=== PATIENT | female | born 1940 | race Hispanic/Latino ===

== ENCOUNTER 2017-12-16 18:47 | Inpatient (IN) | payer MEDICARE, OTHER ==
[~2017-12-16] VITALS: Ht 160 cm; Wt 60.5 kg
[~2017-12-16 18:47] MED LIST: SEROQUEL25 MG PO; TRAZODONE HCL50 MG GT
--- NOTE | 2017-12-16 20:23 | Diagnostic Imaging Report ---
EXAMINATION: CHEST SINGLE (PORTABLE) 12/16/2017 7:57 PM COMPARISON: None INDICATION: Preoperative evaluation. Patient pulled out G-tube. DISCUSSION: LINES: None. LUNGS: The lung volumes are low. There is a retrocardiac opacity. Subsegmental atelectasis in the right lung base. PLEURA: No pleural effusion or pneumothorax. HEART AND MEDIASTINUM: Heart size is at the upper limits of normal. There is atherosclerosis of the thoracic aorta. BONES AND SOFT TISSUES: No acute osseous lesion. The soft tissues are normal. IMPRESSION: Low lung volumes with right basilar subsegmental atelectasis. Left lower lobe airspace opacity may represent atelectasis or infection. Shon Yee MD Signed by: Dr. Shon Yee M.D. on 12/16/2017 8:19 PM
[2017-12-16 20:57] LABS: BASOPHILS # (AUTO) 0.1 (0.0-0.1); BASOPHILS % 0.7 % (0.0-1.0); EOSINOPHILS % 0.4 % (0.0-6.0); HEMATOCRIT 44.3 % (34.2-44.1); HEMOGLOBIN 14.5 g/dL (12.0-16.0); LYMPHOCYTES # (AUTO) 1.6 (1.0-3.2); LYMPHOCYTES % 19.4 % (18.0-39.1); MEAN CORPUSCULAR HGB CONC 32.7 g/dL (31-35); MEAN CORPUSCULAR VOLUME 97.8 fL (81-99); MONOCYTES # (AUTO) 0.7 (0.2-0.8); MONOCYTES % 8.8 % (4.4-11.3); NEUTROPHILS # (AUTO) 5.9 (2.1-6.9); NEUTROPHILS % 70.5 % (38.7-80.0); PLATELET COUNT 246 x10e3/uL (140-360); RED BLOOD COUNT 4.53 x10e6/uL (3.6-5.1); RED CELL DISTRIBUTION WIDTH 14.4 % (11.7-14.4)
[2017-12-16 21:01] LABS: INR 1.09; PROTHROMBIN TIME 13.3 seconds (11.9-14.5)
[2017-12-16 21:02] LABS: PARTIAL THROMBOPLASTIN TIME 29.2 seconds (23.8-35.5)
[2017-12-16] MEDS ORDERED: LISINOPRIL20 MG GT (21:07)
[2017-12-16] MEDS ORDERED: LEVETIRACE500 MG/51 GT ×2 (21:07)
[2017-12-16] MEDS ORDERED: [UNRECOGNIZED DRUG - CODE] NEB (21:07)
[2017-12-16] MEDS ORDERED: TRANSDERM-SCOP1 EACH TD (21:07)
[2017-12-16] MEDS ORDERED: PHENYTOIN125 MG/5 M GT (21:07)
[2017-12-16] MEDS ORDERED: NEXIUM40 M1 GT (21:07)
[2017-12-16] MEDS ORDERED: MAGNESIUM OXID400 MG GT (21:07)
[2017-12-16] MEDS ORDERED: FERROUS SULFATE GT (21:07)
[2017-12-16] MEDS ORDERED: TYLENOL325 MG GT (21:07)
[2017-12-16] MEDS ORDERED: AMLODIPINE BESYL5 MG GT (21:07)
[2017-12-16] MEDS ORDERED: ZINC SULFATE220 MG GT (21:07)
[2017-12-16] MEDS ORDERED: VITAMIN C500 M1 GT (21:07)
[2017-12-16] MEDS ORDERED: DOCUSATE SODIU100 MG GT (21:07)
[2017-12-16] MEDS ORDERED: FOLIC ACID1 MG GT (21:07)
[2017-12-16] MEDS ORDERED: MIRTAZAPINE15 MG GT (21:07)
[2017-12-16] MEDS ORDERED: ARICEPT5 MG GT (21:07)
[2017-12-16] MEDS ORDERED: NOVOLOG100 UNITS1 (21:07)
[2017-12-16] MEDS ORDERED: METOPROLOL TART50 MG GT (21:07)
[2017-12-16 21:10] LABS: ALANINE AMINOTRANSFERASE 12 IU/L (0-55); ALBUMIN 2.9 g/dL (3.5-5.0); ALBUMIN/GLOBULIN RATIO 0.6 (0.8-2.0); ALKALINE PHOSPHATASE 82 IU/L (40-150); ANION GAP 13.9 mmol/L (8-16); BLOOD UREA NITROGEN 17 mg/dL (7-26); BUN/CREATININE RATIO 28 (6-25); CALCIUM 9.4 mg/dL (8.4-10.2); CARBON DIOXIDE 27 mmol/L (22-29); CHLORIDE 105 mmol/L (98-107); EST GLOMERULAR FILTRATION RATE > 60 ML/MIN (60-); GLUCOSE 99 mg/dL (74-118); POTASSIUM 3.9 mmol/L (3.5-5.1); SODIUM 142 mmol/L (136-145)
--- NOTE | 2017-12-16 21:45 | Diagnostic Imaging Report ---
EXAM: CT CHEST WO DATE: 12/16/2017 8:50 PM INDICATION: Evaluate findings on chest x-ray COMPARISON: None TECHNIQUE: Multidetector CT scanning of the chest was performed. Coronal and sagittal multiplanar reformations were obtained. IV Contrast: 0 ml Isovue 370/300 FINDINGS: LUNGS AND PLEURA: Low lung volumes with bibasilar opacity. Nonspecific 4 mm right upper lobe nodule on image 21. No appreciable pleural effusion. HEART, MEDIASTINUM, VESSELS: Normal heart size with scattered coronary artery and aortic calcification. No significant pericardial effusion. Incidental right thyroid calcification and 1.5 cm left thyroid nodule. UPPER ABDOMEN: Cholecystectomy clips. MUSCULOSKELETAL: No acute findings. IMPRESSION: Low lung volumes with mild bibasilar opacities, which may reflect atelectasis and/or aspiration/infection. Consider 6-8 week follow-up radiographs. Signed by: Dr Michelle Zeng MD on 12/16/2017 9:42 PM
[2017-12-16] MEDS ORDERED: DEXTROSE 50% SYRINGE 50 ML IV PRN (22:30)
[2017-12-16] MEDS ORDERED: DEXTROSE 5%/0.45% SOD CHL 1,000 ML IV ONE (22:30)
[2017-12-16 23:40] VITALS: BP 124/68
[2017-12-17] VITALS (8 sets, daily range): BP systolic 107–144; BP diastolic 59–80
[2017-12-17] MEDS: INSULIN REGULAR, HUMAN 100 UNIT/1 ML 3ML VIAL SQ SCH ×4 (07:30→20:30)
[2017-12-17] MEDS ORDERED: ACETAMINOPHEN 325 MG TAB GT PRN (07:45)
[2017-12-17] MEDS: FERROUS SULFATE 300 MG/5 ML LIQD GT SCH ×3 (09:00→20:52)
[2017-12-17] MEDS: LISINOPRIL 20 MG TAB GT SCH (09:00)
[2017-12-17] MEDS: METOPROLOL TARTRATE 50 MG TAB GT SCH ×2 (09:00→20:53)
[2017-12-17] MEDS ORDERED: LEVETIRACETAM GT SCH (09:00)
[2017-12-17] MEDS: ASCORBIC ACID 500 MG TAB GT SCH (09:00)
[2017-12-17] MEDS ORDERED: NON-FORMULARY MEDICATION (Esomeprazole Magnesium (Nexium) 40 MG) GT SCH (09:00)
[2017-12-17] MEDS ORDERED: FERROUS SULFATE 220 MG GT SCH (09:00)
[2017-12-17] MEDS: MAGNESIUM OXIDE 400 MG TAB GT SCH (09:00)
[2017-12-17] MEDS ORDERED: PHENYTOIN 125 MG GT SCH (09:00)
[2017-12-17] MEDS: ZINC SULFATE 220 MG CAP GT SCH (09:00)
[2017-12-17] MEDS: AMLODIPINE BESYLATE 5 MG TAB GT SCH (09:00)
[2017-12-17] MEDS: DOCUSATE SODIUM 100 MG CAP GT SCH ×2 (09:00→16:36)
[2017-12-17] MEDS: FOLIC ACID 1 MG TAB GT SCH (09:00)
[2017-12-17] MEDS ORDERED: PHENYTOIN 100 MG/4 ML CUP NG SCH ×2 (09:00→11:30)
--- NOTE | 2017-12-17 09:07 | History and Physical ---
CHIEF COMPLAINT: History of a prior cerebrovascular accident and dislodgement of her feeding tube. HISTORY OF PRESENT ILLNESS: The patient is a 77-year-old woman. She has a history of remote cerebrovascular accident, dementia, and depression. [facility] was staying at a [facility]. She had a feeding tube which became dislodged. There were no complaints of abdominal pain, nausea, vomiting, or fever. PAST MEDICAL HISTORY: 1. Prior cerebrovascular accident. 2. Aphasia. 3. Depression. 4. Hypertension. 5. Insomnia. PAST SURGICAL HISTORY: Noncontributory. The records are not available at this time. FAMILY HISTORY: Family history is noncontributory. SOCIAL HISTORY: The patient was never a smoker. She is not a drinker. REVIEW OF SYSTEMS: The patient is afebrile. The patient is not complaining of headache or neck pain. There is no chest pain. There is no shortness of breath. There is no abdominal pain, nausea, or vomiting. The feeding tube was dislodged. There is no leg edema. The patient does not speak. She does not appear completely oriented at baseline. PHYSICAL EXAMINATION: VITAL SIGNS: The patient is afebrile. The vital signs are stable. HEENT: Shows no facial swelling or erythema. The nasal mucosa is normal. The oropharynx is normal. LYMPHATIC: Shows no submandibular, cervical, or supraclavicular adenopathy. CARDIAC: Reveals a regular rate and rhythm with a normal S1 and S2. There are no murmurs or rubs. CHEST: Auscultation of lungs reveals clear breath sounds bilaterally. There is no wheezing. ABDOMEN: Soft and nontender. There is no rebound or guarding. The feeding tube is dislodged. EXTREMITIES: There is no leg edema. SKIN: Shows no rash. NEUROLOGICAL: Shows the patient to not be responsive. She is not speaking much. She appears disoriented at baseline. IMPRESSION: 1. Old cerebrovascular accident. 2. Depression. 3. Organic brain syndrome. 4. Recurrent aspiration. PLAN: 1. The patient will have feeding tube replaced. 2. Will restart the enteral feedings afterwards. 3. Once the feeding tube is replaced, we will restart the patient's oral medications. Job#: [id number]
[2017-12-17] MEDS ORDERED: ALBUTEROL NEB SCH (10:00)
[2017-12-17] MEDS ORDERED: IPRATROPIUM NEB SCH (10:00)
[2017-12-17] MEDS: DEXTROSE 5%/0.45% SOD CHL 1,000 ML IV SCH (14:13)
[2017-12-17 15:43] LABS: FREE T4 (FREE THYROXINE) 0.97 ng/dL (0.9-1.8); THYROID STIMULATING HORMONE 0.988 uIU/mL (0.350-4.940)
[2017-12-17] MEDS: INSULIN LISPRO 100 UNIT/1 ML 3ML VIAL SQ SCH ×2 (16:30→20:52)
[2017-12-17] MEDS: ALBUTEROL/IPRATROPIUM 3 ML NEB INH SCH ×2 (19:10→23:15)
[2017-12-17] MEDS: DONEPEZIL HCL 5 MG TAB GT SCH (20:52)
[2017-12-17] MEDS: PHENYTOIN 100 MG/4 ML CUP NG SCH (20:53)
[2017-12-17] MEDS: MIRTAZAPINE 15 MG TAB GT SCH (20:53)
[2017-12-17] MEDS ORDERED: LEVETIRACETAM 500 MG TAB GT SCH (21:00)
[2017-12-17] MEDS ORDERED: LEVETIRACETAM 1500 MG GT SCH (21:00)
--- NOTE | 2017-12-17 23:02 | Consultation ---
DATE OF CONSULTATION: December 17, 2017 ENDOCRINE CONSULTATION This is a patient of Dr. Gabino Guajardo. Thank you very much for referring this patient. HISTORY: This is 77-year-old female who is referred to me for evaluation of diabetes mellitus. Most of the history is available from the chart. Patient is aphasic and she also has altered mental status. Patient is admitted in the hospital because of her gastrostomy tube got dislodged and she supposed to have it put it back up on the week on Tuesday. Patient has multiple medical problems including history of hypertension, multiple CVAs in the past, dementia. She has also history of schizophrenia, anemia. In the longterm, the patient is on insulin sliding scale. Her other routine medications include amlodipine 5 mg once daily. She is on folic acid, lisinopril 40 mg once daily, metoprolol 50 mg once daily. Patient is also on Dilantin, albuterol. PHYSICAL EXAMINATION: GENERAL: Today, the patient is responding to the oral commands, but she is not able to speak. VITAL SIGNS: Her heart rate is around 70, blood pressure is 120/80 mmHg. HEENT: Essentially unremarkable. Thyroid is palpable. Clinically, she is near euthyroid. CHEST: Bilateral vesicular breathing. She has bilateral bronchospasms. CARDIAC: Both 1st and 2nd heart sounds. There is no 3rd or 4th heart sound. Ejection systolic murmur, grade 2/6. EXTREMITIES: Patient has dense hemiplegia on the right upper and lower extremities. LABS: So far has revealed her blood sugars have been in the ranges of 99 to 100. Her BUN and creatinine is 17 and 0.6. White count is 8.39, hemoglobin is 14.5 with hematocrit of 44.3. CLINICAL IMPRESSION: 1. Diabetes mellitus type 2 with complications. 2. Dislodged gastrostomy tube, for placement of the gastrostomy tube. 3. Status post multiple cerebrovascular accidents. 4. History of schizophrenia. 5. Dementia. 6. Seizure disorder. 7. Hypertension. PLAN: At this time is to start on some IV fluids. She looks slightly dehydrated. Will also monitor her blood sugars closely and put her on sliding scale insulin. Thanks again for referring this patient. I will be following this patient with you. Job#: [id number]
[2017-12-18] VITALS (8 sets, daily range): BP systolic 113–142; BP diastolic 56–77
[2017-12-18] MEDS: DEXTROSE 5%/0.45% SOD CHL 1,000 ML IV SCH ×2 (00:48→13:10)
[2017-12-18] MEDS: ALBUTEROL/IPRATROPIUM 3 ML NEB INH SCH ×6 (03:15→23:30)
[2017-12-18] MEDS: INSULIN LISPRO 100 UNIT/1 ML 3ML VIAL SQ SCH ×4 (07:30→20:58)
[2017-12-18] MEDS: PANTOPRAZOLE SODIUM 40 MG SUSPDR.PKT GT SCH (07:30)
[2017-12-18] MEDS: INSULIN REGULAR, HUMAN 100 UNIT/1 ML 3ML VIAL SQ SCH ×4 (07:30→20:58)
[2017-12-18] MEDS: METOPROLOL TARTRATE 50 MG TAB GT SCH ×2 (09:00→20:58)
[2017-12-18] MEDS: ASCORBIC ACID 500 MG TAB GT SCH (09:00)
[2017-12-18] MEDS: LISINOPRIL 20 MG TAB GT SCH (09:00)
[2017-12-18] MEDS: AMLODIPINE BESYLATE 5 MG TAB GT SCH (09:00)
[2017-12-18] MEDS: FOLIC ACID 1 MG TAB GT SCH (09:00)
[2017-12-18] MEDS: FERROUS SULFATE 300 MG/5 ML LIQD GT SCH ×3 (09:00→20:58)
[2017-12-18] MEDS: DOCUSATE SODIUM 100 MG CAP GT SCH ×2 (09:00→16:54)
[2017-12-18] MEDS: ZINC SULFATE 220 MG CAP GT SCH (09:00)
[2017-12-18] MEDS: PHENYTOIN 100 MG/4 ML CUP NG SCH (09:00)
[2017-12-18] MEDS: MAGNESIUM OXIDE 400 MG TAB GT SCH (09:00)
[2017-12-18] MEDS ORDERED: PHENYTOIN SODIUM INJ 50 MG/ML 2 ML VIAL IV SCH (11:30)
[2017-12-18] MEDS ORDERED: PHENYTOIN IV NR (12:30)
[2017-12-18] MEDS: LEVETIRACETAM 500MG/5ML VIAL 1,500 MG in SODIUM CHLORIDE 0.9% 100 ML 100 ML IV SCH ×2 (12:42→21:50)
[2017-12-18 13:20] LABS: CLARITY,URINE HAZY (CLEAR); COLOR,URINE YELLOW (YELLOW); KETONES,URINE NEGATIVE (NEGATIVE); LEUKOCYTE ESTERASE ,URINE 2+ (NEGATIVE); NITRITE,URINE NEGATIVE (NEGATIVE); PROTEIN,URINE DIPSTICK NEGATIVE (NEGATIVE); URINE UROBILINOGEN 4 mg/dL (0.2 - 1)
[2017-12-18 13:21] LABS: BILIRUBIN,URINE NEGATIVE (NEGATIVE)
[2017-12-18 13:26] LABS: BACTERIA,URINE MANY /HPF; EPITHELIAL CELLS,URINE MANY /LPF; WBC,URINE (MAN) >50 /HPF (0-5)
--- NOTE | 2017-12-18 15:36 | Diagnostic Imaging Report ---
EXAMINATION: Head CT without contrast. HISTORY: Altered mental status, no vertebral, history of prior stroke. COMPARISON: Brain MRI in 01/23/2009 TECHNIQUE: Multidetector axial images were obtained without contrast from the foramen magnum to the vertex . The images were reconstructed using brain and bone algorithms. Thin section brain images were reformatted into coronal and sagittal planes. Image quality: Motion/streaking artifact limits the evaluation of the skull base and posterior cranial fossa. Dose modulation, iterative reconstruction, and/or weight based adjustment of the mA/kV was utilized to reduce the radiation dose to as low as reasonably achievable. FINDINGS: Parenchyma: 1. Worsening now severe supratentorial white matter hypodensities, related to nonspecific chronic microvascular ischemic changes. 2. Chronic lacunar infarct in the body of the right caudate nucleus is unchanged from MRI of 01/23/2009. 3. No mass or hemorrhage. No CT evidence of acute territorial vascular insult. Extra-axial spaces:No abnormal density. No extra-axial fluid collections Brain volume: Severe atrophy with disproportionate bilateral frontal and temporal to include the hippocampi atrophy, correlation for possible frontotemporal type of dementia in the appropriate clinical setting. Ventricles: Ventriculomegaly, that is slightly out of proportion to the size of the cortical sulci, thinning and upward displacement of the corpus callosum, with relative partial effacement of the vertex region sulci. Some degree of normal pressure hydrocephalus cannot be excluded in the appropriate clinical context. Arteries: No density suggestive of thrombus. Dural sinuses: No abnormal density. Extra-axial spaces: No abnormal density. Foramen magnum: No mass, Chiari malformation, or basilar invagination. Sella: No obvious mass. Paranasal/mastoid sinuses: Imaged portions unremarkable. Skull/Scalp: No lytic or blastic lesions. No fractures. IMPRESSION: 1. No intracranial mass, hemorrhage or acute cortical infarct. 2. Progression to severe chronic microvascular ischemic changes when compared to MRI on 01/23/2009. 3. Severe atrophy with disproportionate frontotemporal involvement as detailed above. 4. Slightly disproportionate ventriculomegaly as described. Signed by: Dr. Penny Wolfe M.D. on 12/18/2017 3:33 PM
[2017-12-18] MEDS: DONEPEZIL HCL 5 MG TAB GT SCH (20:58)
[2017-12-18] MEDS: MIRTAZAPINE 15 MG TAB GT SCH (20:59)
[2017-12-18] MEDS: PHENYTOIN IV SCH (21:50)
--- NOTE | 2017-12-18 22:06 | Consultation ---
DATE OF CONSULTATION: December 18, 2017 NEUROLOGY CONSULT NOTE HISTORY OF PRESENT ILLNESS: Unfortunately, the patient is encephalopathic/aphasic. There is no family available at the bedside nor can any family be reached by telephone. History is obtained from review of the electronic medical records. Ms. Deras is a 77-year-old woman with past medical history significant for multiple strokes, an underlying seizure disorder, dementia, and reported history of schizophrenia, admitted to [facility] on December 16, 2017 with a dislodged feeding tube. Ms. Deras is a shelter resident. At some time on December 16, 2017, it was noted the patient's feeding tube had become dislodged. The patient was transported to [facility] where she was admitted as an inpatient pending replacement of the feeding tube. During this hospitalization, a neurology consultation was placed for encephalopathy. However, as the patient is encephalopathic/aphasic and there is no family available to provide information, it is unknown whether Ms. Deras is currently at her neurological baseline or if there is indeed some deterioration from her neurological baseline. REVIEW OF SYSTEMS: Unable to obtain secondary to the patient being encephalopathic/aphasic. PAST MEDICAL HISTORY: Hypertension, reported diabetes mellitus type 2, gastroesophageal reflux disease, depression, reported schizophrenia, seizure disorder, reported multiple prior strokes, dementia. PAST SURGICAL HISTORY: Placement of feeding tube. Further surgical history cannot be obtained secondary to the patient being encephalopathic/aphasic. PAST HOSPITALIZATIONS: Surgeries/procedures as listed, strokes. Further information cannot be obtained secondary to the patient being encephalopathic/aphasic. FAMILY MEDICAL HISTORY: Unable to obtain secondary to the patient being encephalopathic/aphasic. SOCIAL HISTORY: The patient is reportedly a . She is a resident of a shelter. Ms. Deras is retired. There is no reported current or prior tobacco, alcohol, or recreational drug use. HOME MEDICATIONS: Tylenol 650 mg G-tube every 6 hours as needed for pain, Norvasc 5 mg G-tube daily, vitamin C 500 mg G-tube daily, Colace 100 mg G-tube twice daily, Aricept 5 mg G-tube at bedtime daily, Nexium 40 mg G-tube daily, folic acid 1 mg G-tube daily, NovoLog, levetiracetam 1500 mg G-tube at bedtime daily, lisinopril 40 mg G-tube daily, magnesium oxide 400 mg G-tube daily, metoprolol tartrate 50 mg G-tube q.12h, mirtazapine at 7.5 mg G-tube at bedtime daily, phenytoin 125 mg G-tube q.12h., scopolamine hydrobromide 1.5 mg topically every 72 hours, zinc sulfate 220 mg G-tube daily, albuterol ipratropium nebulizer q.4h., ferrous sulfate 220 mg G-tube 3 times daily. ALLERGIES: NO KNOWN DRUG ALLERGIES. NO KNOWN FOOD ALLERGIES. NO KNOWN ALLERGIES TO LATEX. NO KNOWN ALLERGIES TO IODINE OR OTHER CONTRAST MATERIALS. PHYSICAL EXAMINATION: VITAL SIGNS: Height 63 inches, weight 133 pounds, BMI 23.6 kg/sq m. Blood pressure 113/56 mmHg, pulse 62 beats per minute, respiratory rate 18 breaths per minute, oxygen saturation 97% on 1 liter by nasal cannula. GENERAL: The patient is awake and alert, does not appear distressed. HEENT: Normocephalic, atraumatic. Pupils are surgical. Moist mucous membranes. NECK: Supple. No appreciable thyromegaly. No appreciable carotid bruits. CARDIOVASCULAR: S1, S2, regular rate and rhythm. No murmurs, rubs, or gallops. RESPIRATORY: Clear to auscultation bilaterally. No wheezes, rhonchi, or rales. EXTREMITIES: The skin is warm and dry. No clubbing, cyanosis, or edema. The posterior tibial and dorsalis pedis pulses are 1+ and symmetric. SKIN: No rashes or lesions. NEUROLOGIC EXAMINATION: MEMORY/ATTENTION: The patient is awake and alert, unable to assess orientation secondary to the patient being encephalopathic/aphasic. CRANIAL NERVES: The pupils are surgical. Corneal, oculocephalic, and gag reflexes are intact. There appears to be flattening of the left nasolabial fold. STRENGTH: Bulk is diminished throughout. There is spontaneous movement of the left arm. The right arm does not withdraw to noxious stimulation. There is triple flexion of both legs to peripheral noxious stimulation. Tone is increased in the left arm and both legs. Tone is decreased in the right arm. DTRs: Deep tendon reflexes are 3+ at the left triceps, biceps, and brachioradialis, and bilateral patellas and Achilles'. Deep tendon reflexes are 2+ at the right triceps, biceps, and brachioradialis. Plantar responses are mute bilaterally. There are several beats of clonus at both ankles. SENSATION: As per motor exam. CEREBELLAR: Unable to assess secondary to the patient being encephalopathic/aphasic. GAIT: Deferred. SPEECH: Unable to assess secondary to the patient being encephalopathic/aphasic. INVOLUNTARY MOVEMENTS: None. PRONATOR DRIFT: As per motor exam. LABORATORY DATA: A complete metabolic panel is significant for a mildly elevated BUN to creatinine ratio of 28, an albumin level of 2.9, a globulin level of 4.9, and an albumin to globulin ratio of 0.6. The hemoglobin A1c is 5.1. TSH 0.988. Free T4 0.97. The CBC with differential and platelets reveals a white blood cell count of 8.39 with a normal differential. The hemoglobin and hematocrit are within normal limits. The platelet count is 246,000. PT 13.3, INR 1.09, PTT 29.2. DIAGNOSTIC STUDIES: 1. Chest x-ray, December 16, 2017: Low lung volumes with right basilar subsegmental atelectasis. Left lower lobe airspace opacity may represent atelectasis or infection. 2. Chest CT, December 16, 2017: Low lung volumes with mild bibasilar opacities, which may reflect atelectasis and/or aspiration/infection. Consider 6- to 8-week followup radiographs. ASSESSMENT AND PLAN: Ms. Deras is a 77-year-old woman with an extensive past medical history, admitted to [facility] on December 16, 2017 with a dislodged feeding tube. A neurology consultation was placed for encephalopathy. Ms. Deras has undergone a thorough neurological examination with findings detailed above. Her laboratory data and other diagnostic studies have been reviewed and are documented above. As stated in the history of present illness, without any knowledge of the patient's neurological baseline, it is difficult to determine if she is currently at her neurological baseline or if there has been some deterioration from her neurological baseline. Nevertheless, an evaluation for encephalopathy will be pursued. 1. Additional laboratory data will be ordered as follows: Blood cultures, urinalysis with urine culture, ammonia level, lactic acid level, vitamin B1 level, vitamin B12 level, RPR. 2. A CT of the brain without contrast will be ordered. 3. A routine EEG will be ordered. 4. The patient's antiepileptic medications will be changed to intravenous form (phenytoin 125 mg intravenously every 12 hours and Keppra 1500 mg intravenously at bedtime daily). A total phenytoin level will be drawn. 5. Defer treatment of the remaining medical comorbidities to the primary and other services following this patient. Thank you for this consultation. I will continue to follow this patient while she remains in the hospital. TIME SPENT: 70 minutes. Job#: [id number] DR SAGE
[2017-12-19] VITALS (7 sets, daily range): BP systolic 109–119; BP diastolic 56–82
[2017-12-19] MEDS: ALBUTEROL/IPRATROPIUM 3 ML NEB INH SCH ×6 (03:00→23:00)
[2017-12-19] MEDS: DEXTROSE 5%/0.45% SOD CHL 1,000 ML IV SCH ×2 (04:00→15:46)
[2017-12-19 06:02] LABS: BASOPHILS % 0.6 % (0.0-1.0); EOSINOPHILS # (AUTO) 0.1 (0.0-0.4); EOSINOPHILS % 1.5 % (0.0-6.0); HEMATOCRIT 37.6 % (34.2-44.1); LYMPHOCYTES % 28.7 % (18.0-39.1); MEAN CORPUSCULAR HEMOGLOBIN 31.9 pg (28-32); MEAN CORPUSCULAR HGB CONC 32.7 g/dL (31-35); MEAN CORPUSCULAR VOLUME 97.7 fL (81-99); MONOCYTES # (AUTO) 0.7 (0.2-0.8); MONOCYTES % 10.5 % (4.4-11.3); NEUTROPHILS % 58.6 % (38.7-80.0); RED BLOOD COUNT 3.85 x10e6/uL (3.6-5.1); RED CELL DISTRIBUTION WIDTH 13.2 % (11.7-14.4)
[2017-12-19 06:04] LABS: HEMOGLOBIN 12.3 g/dL (12.0-16.0); PLATELET COUNT 173 x10e3/uL (140-360)
[2017-12-19 06:42] LABS: ALANINE AMINOTRANSFERASE 14 IU/L (0-55); ALBUMIN 2.5 g/dL (3.5-5.0); ALBUMIN/GLOBULIN RATIO 0.6 (0.8-2.0); ALKALINE PHOSPHATASE 68 IU/L (40-150); ANION GAP 10.7 mmol/L (8-16); BLOOD UREA NITROGEN 7 mg/dL (7-26); BUN/CREATININE RATIO 13 (6-25); CALCIUM 8.7 mg/dL (8.4-10.2); CARBON DIOXIDE 24 mmol/L (22-29); CHLORIDE 104 mmol/L (98-107); CREATININE, SERUM 0.55 mg/dL (0.57-1.11); EST GLOMERULAR FILTRATION RATE > 60 ML/MIN (60-); GLUCOSE 102 mg/dL (74-118); POTASSIUM 3.7 mmol/L (3.5-5.1); SODIUM 135 mmol/L (136-145)
[2017-12-19 07:12] LABS: PHENYTOIN (DILANTIN) 2.02 ug/mL (10-20)
[2017-12-19] MEDS: PANTOPRAZOLE SODIUM 40 MG SUSPDR.PKT GT SCH (07:30)
[2017-12-19] MEDS: INSULIN REGULAR, HUMAN 100 UNIT/1 ML 3ML VIAL SQ SCH ×4 (07:30→21:49)
[2017-12-19] MEDS: INSULIN LISPRO 100 UNIT/1 ML 3ML VIAL SQ SCH ×4 (07:30→21:00)
[2017-12-19] MEDS ORDERED: SODIUM CHLORIDE 0.9% 500ML 500 ML ONE (08:05)
[2017-12-19] MEDS ORDERED: LIDOCAINE HCL 2% LOCAL 20 ML VIAL ONE (08:05)
[2017-12-19] MEDS: FERROUS SULFATE 300 MG/5 ML LIQD GT SCH ×3 (09:00→22:25)
[2017-12-19] MEDS: LISINOPRIL 20 MG TAB GT SCH (09:00)
[2017-12-19] MEDS: PHENYTOIN IV SCH (09:00)
[2017-12-19] MEDS: METOPROLOL TARTRATE 50 MG TAB GT SCH ×2 (09:00→21:00)
[2017-12-19] MEDS: DOCUSATE SODIUM 100 MG CAP GT SCH (09:00)
--- NOTE | 2017-12-19 13:56 | Diagnostic Imaging Report ---
Date and Time: 12/19/2017 Procedure: Gastrostomy tube replacement under fluoroscopic guidance control room operator: Dr. Gomez Pre-operative diagnosis: Dislodged gastrostomy tube Post-operative diagnosis: Replaced gastrostomy tube Conscious Sedation: None The patient's heart rate and pulse oximetry were continuously monitored by the interventional radiology nurse. Blood pressure was monitored at 5 minute intervals. Additional Medications: Lidocaine 1% for local anesthesia Fluoroscopy time: 0.7 minutes Dose-area Product: 98.3 cGycm2. Contrast used: 20 cc Isovue-300 Estimated blood loss: Less than 5 cc Specimens: None Implants: 14 Malagasy balloon retention gastrostomy Complications: No immediate Blood products administered: None Condition at completion: Stable Disposition: Returned to floor DISCUSSION: Informed consent was obtained from the next of kin and documented in the medical record. The patient was placed in the supine position on the angiographic table. The midepigastric region and existing tract of the percutaneous gastrostomy catheter were prepped and draped in the standard sterile fashion. A 5 Malagasy angled catheter was gently advanced through the stoma and into the gastric fundus under fluoroscopic guidance. Injection of dilute contrast material confirmed appropriate positioning. At this point, 1% lidocaine was infiltrated into the subcutaneous tissues along the gastrostomy tract for local anesthesia. A 0.0 3 5-in. Amplatz Super Stiff wire was advanced through the catheter and coiled within the gastric fundus. The catheter was removed over the wire and the tract was dilated. Then a 14 Malagasy balloon retention gastrostomy catheter was advanced over the wire and into the gastric body. The retention balloon was inflated with 6 cc sterile saline and retracted to the anterior gastric wall. The wire was removed. Injection of dilute contrast material confirmed appropriate positioning. The catheter was flushed copiously with sterile saline and capped. A sterile dressing was applied. The patient tolerated the procedure well without immediate complication. IMPRESSION: Successful replacement of a dislodged percutaneous gastrostomy catheter under fluoroscopic guidance. The new catheter is a 14 Malagasy balloon retention gastrostomy and may be used immediately. Signed by: Dr. Kodak Gomez M.D. on 12/19/2017 1:53 PM
[2017-12-19] MEDS ORDERED: BALSAM PERU/CASTOR OIL 60 GM OINT...G. TP PRN (14:45)
[2017-12-19] MEDS ORDERED: LEVOFLOXACIN 500MG/D5W 100ML 100 ML IV SCH (16:30)
[2017-12-19] MEDS ORDERED: FOSPHENYTOIN 50 MG/ML VIAL IV STA (17:11)
[2017-12-19] MEDS ORDERED: FOSPHENYTOIN IV ONE (17:45)
[2017-12-19] MEDS ORDERED: SODIUM CHLORIDE 0.9% IV ONE (17:45)
[2017-12-19] MEDS: AMLODIPINE BESYLATE 5 MG TAB GT SCH (18:07)
[2017-12-19] MEDS: FOLIC ACID 1 MG TAB GT SCH (18:07)
[2017-12-19] MEDS: MAGNESIUM OXIDE 400 MG TAB GT SCH (18:07)
[2017-12-19] MEDS: DOCUSATE SODIUM LIQD 100 MG/10 ML UDC PEG SCH (18:07)
[2017-12-19] MEDS: ASCORBIC ACID 500 MG TAB GT SCH (18:07)
[2017-12-19] MEDS: ZINC SULFATE 220 MG CAP GT SCH (18:07)
[2017-12-19] MEDS: INSULIN DETEMIR 100 UNIT/ML PEN SQ SCH (21:49)
[2017-12-19] MEDS: DONEPEZIL HCL 5 MG TAB GT SCH (22:25)
[2017-12-19] MEDS: MIRTAZAPINE 15 MG TAB GT SCH (22:25)
[2017-12-19] MEDS: PHENYTOIN 100 MG/4 ML CUP NG SCH (22:26)
[2017-12-19] MEDS: LEVETIRACETAM ORAL SOLUTION 500 MG/5 ML SOLN NG SCH (22:26)
[2017-12-20] VITALS (8 sets, daily range): BP systolic 99–143; BP diastolic 49–79
[2017-12-20] MEDS: ALBUTEROL/IPRATROPIUM 3 ML NEB INH SCH ×6 (02:45→23:30)
[2017-12-20] MEDS: INSULIN LISPRO 100 UNIT/1 ML 3ML VIAL SQ SCH ×4 (07:30→20:13)
[2017-12-20] MEDS: INSULIN REGULAR, HUMAN 100 UNIT/1 ML 3ML VIAL SQ SCH ×4 (07:30→20:13)
[2017-12-20] MEDS: FOLIC ACID 1 MG TAB GT SCH (08:28)
[2017-12-20] MEDS: FERROUS SULFATE 300 MG/5 ML LIQD GT SCH ×3 (08:28→20:13)
[2017-12-20] MEDS: PANTOPRAZOLE SODIUM 40 MG SUSPDR.PKT GT SCH (08:28)
[2017-12-20] MEDS: MAGNESIUM OXIDE 400 MG TAB GT SCH (08:29)
[2017-12-20] MEDS: ASCORBIC ACID 500 MG TAB GT SCH (08:29)
[2017-12-20] MEDS: ZINC SULFATE 220 MG CAP GT SCH (08:29)
[2017-12-20] MEDS: AMLODIPINE BESYLATE 5 MG TAB GT SCH (08:29)
[2017-12-20] MEDS: DOCUSATE SODIUM LIQD 100 MG/10 ML UDC PEG SCH ×2 (08:29→18:41)
[2017-12-20] MEDS: BALSAM PERU/CASTOR OIL 60 GM OINT...G. TP SCH ×2 (08:29→23:17)
[2017-12-20] MEDS: METOPROLOL TARTRATE 50 MG TAB GT SCH ×2 (08:29→20:13)
[2017-12-20] MEDS: PHENYTOIN 100 MG/4 ML CUP NG SCH ×2 (08:29→20:13)
[2017-12-20] MEDS: LISINOPRIL 20 MG TAB GT SCH (08:29)
[2017-12-20] MEDS ORDERED: BALSAM PERU/CASTOR OIL 5 GM OINT...G. TP SCH (09:00)
[2017-12-20] MEDS: CEFUROXIME AXETIL 250 MG TAB PO SCH ×2 (11:40→18:41)
[2017-12-20] MEDS ORDERED: ONDANSETRON HCL INJ 2 MG/ML VIAL IV PRN (16:15)
[2017-12-20] MEDS ORDERED: CEFTRIAXONE SOD 1 GM VIAL IV SCH (17:00)
--- NOTE | 2017-12-20 17:13 | Diagnostic Imaging Report ---
Examination: Single AP view of the chest. COMPARISON: CT chest 12/16/2017 INDICATION: Dislodged gastrostomy tube, suspected aspiration IMPRESSION: 1. Lines and Tubes: None 2. Lungs are hypoinflated. Bibasilar atelectatic changes, similar to prior CT dated 12/16/2017. No consolidation or effusion. 3. Cardiomediastinal silhouette is normal. Pulmonary vasculature is normal. 4. No acute bony abnormalities. Rightward curvature of the upper thoracic spine, which may be positional. 5. Moderately distended stomach. Signed by: Dr. Raffaele Damon M.D. on 12/20/2017 5:09 PM
[2017-12-20] MEDS: DEXTROSE 5%/0.45% SOD CHL 1,000 ML IV SCH (18:41)
[2017-12-20] MEDS: INSULIN DETEMIR 100 UNIT/ML PEN SQ SCH (20:13)
[2017-12-20] MEDS: LEVETIRACETAM ORAL SOLUTION 500 MG/5 ML SOLN NG SCH (20:13)
[2017-12-20] MEDS: MIRTAZAPINE 15 MG TAB GT SCH (20:13)
[2017-12-20] MEDS: DONEPEZIL HCL 5 MG TAB GT SCH (20:13)
[2017-12-21] VITALS: BP 146/72
[2017-12-21] MEDS: ALBUTEROL/IPRATROPIUM 3 ML NEB INH SCH ×3 (03:00→11:25)
[2017-12-21 04:00] VITALS: BP 108/68
[2017-12-21] MEDS: DEXTROSE 5%/0.45% SOD CHL 1,000 ML IV SCH ×2 (04:21→07:20)
[2017-12-21] MEDS: INSULIN REGULAR, HUMAN 100 UNIT/1 ML 3ML VIAL SQ SCH (07:30)
[2017-12-21] MEDS: INSULIN LISPRO 100 UNIT/1 ML 3ML VIAL SQ SCH (07:30)
[2017-12-21 07:54] VITALS: BP 114/56
[2017-12-21 08:20] VITALS: BP 114/56
[2017-12-21] MEDS: PANTOPRAZOLE SODIUM 40 MG SUSPDR.PKT GT SCH (09:21)
[2017-12-21] MEDS: FERROUS SULFATE 300 MG/5 ML LIQD GT SCH (09:21)
[2017-12-21] MEDS: FOLIC ACID 1 MG TAB GT SCH (09:21)
[2017-12-21] MEDS: DOCUSATE SODIUM LIQD 100 MG/10 ML UDC PEG SCH (09:22)
[2017-12-21] MEDS: AMLODIPINE BESYLATE 5 MG TAB GT SCH (09:22)
[2017-12-21] MEDS: LISINOPRIL 20 MG TAB GT SCH (09:22)
[2017-12-21] MEDS: METOPROLOL TARTRATE 50 MG TAB GT SCH (09:22)
[2017-12-21] MEDS: BALSAM PERU/CASTOR OIL 60 GM OINT...G. TP SCH (09:22)
[2017-12-21] MEDS: CEFUROXIME AXETIL 250 MG TAB PO SCH (09:22)
[2017-12-21] MEDS: MAGNESIUM OXIDE 400 MG TAB GT SCH (09:22)
[2017-12-21] MEDS: PHENYTOIN 100 MG/4 ML CUP NG SCH (09:22)
[2017-12-21] MEDS: ASCORBIC ACID 500 MG TAB GT SCH (09:22)
[2017-12-21] MEDS: ZINC SULFATE 220 MG CAP GT SCH (09:22)
[2017-12-21 11:30] VITALS: BP 117/64
== END 2017-12-21 12:10 | DRG 393 ==
LOC: ER 18:47 → ERHOLD 23:05 → MED/SURG3 12-17 00:07 → OBSVTOIN 12-18 10:35
PROVIDERS: ADMIT Internal Medicine Critical Care Medicine; ATTEND Internal Medicine Critical Care Medicine
PROC: 0DH63UZ Insertion of Feeding Device into Stomach, Percutaneous Approach (ICD-10-PCS; principal; 2017-12-19)
DX: Z43.1 Encounter for attention to gastrostomy (principal); G93.41 Metabolic encephalopathy; N39.0 Urinary tract infection, site not specified; I69.351 Hemiplegia and hemiparesis following cerebral infarction affecting right dominant side; F09 Unspecified mental disorder due to known physiological condition; E11.8 Type 2 diabetes mellitus with unspecified complications; F20.9 Schizophrenia, unspecified; G40.909 Epilepsy, unspecified, not intractable, without status epilepticus; F32.9 Major depressive disorder, single episode, unspecified; J70.9 Respiratory conditions due to unspecified external agent; Z66 Do not resuscitate; F03.90 Unspecified dementia, unspecified severity, without behavioral disturbance, psychotic disturbance, mood disturbance, and anxiety; E86.0 Dehydration; B96.20 Unspecified Escherichia coli [E. coli] as the cause of diseases classified elsewhere; I69.320 Aphasia following cerebral infarction
CPT/HCPCS: 36415; 49440; 70450; 71045; 71250; 74470; 77001; 80053; 80185; 81001; 82140; 82607; 82948; 83036; 83605; 84425; 84439; 84443; 85025; 85610; 85730; 86592; 87040; 87086; 87186; 94640; 96360; 96361; 99284; G0378; J0696; J1165; J1956; J2001; J2405; J7040; Q2009